=== PATIENT | female | born 1970 | race Hispanic/Latino ===

== ENCOUNTER → 2020-01-22 | Day surgery (SDC) | payer OTHER ==
[~2020-01-22] MED LIST: FAMOTIDINE20 MG PO; FENTANYL CITRATE/PF 100MCG/2 ML INJ ONE; FLUOXETINE HCL20 MG PO; IBUPROFEN400 MG PO; MIDAZOLAM HCL 2 MG/2 ML VIAL ONE; NASAL SPRAY30 M1; PROPOFOL IV EMULSION 10 MG/ML 20 ML VIAL ONE
--- OUTSIDE RECORDS SUMMARY | 2020-01-22 09:38 | XMS REPORT | Continuity of Care Document ---
Author Author [employer] [facility] [employer] Address Unknown Phone Unavailable Care Team Providers Care Ship Mate Name Role Phone [facility] [employer] [facility] Unavailable Un available Problems Problem Status Onset Date Classification Date Reported Comments Source Discharge Diagnosis: Paresthesia 09/17/2016 09/20/2016 [facility] Discharge Diagnosis: Cold sore 09/17/2016 09/20/2016 [facility] FACE NUMBNESS Active 09/17/2016 [facility] Medications Medication Details Route Status Patient Instructions Ordering Provider Order Date Source acyclovir 400 mg oral tablet 4 00 mg = 1 tab, PO, 5X Day, X 5 day, # 25 tab, 0 Refill(s) Active 09/17/2016 [facility] gabapentin 300 MG Oral Capsule 300 mg = 1 cap, PO, BID, # 30 cap, 0 Refill(s) Active 09/17/2016 [facility] Allergies, Adverse Reactions, Alerts No Known Medication Allergies Immunizations No Data Provided for This Section Results Order Name Results Value Reference Range Date Interpretation Comments Source URINE AND STOOL UA Nitrite Negative (09/17/16 4:04 PM) Negative 09/17/2016 [facility] URINE AND STOOL UA Leuk Est Negative (09/17/16 4:04 PM) Negative 09/17/2016 [facility] URINE AND STOOL UA WBC 1 0 - 5 09/17/2016 [facility] URINE AND STOOL UA Sq Epi Occasional /LPF Few /LPF 09/17/2016 [facility] URINE AND STOOL UA Ketones Negative 09/17/2016 [facility] URINE AND STOOL UA RBC 1 0 - 2 09/17/2016 [facility] URINE AND STOOL UA Urobilinogen <=1.0 mg/dL 0.1 - 1.0 09/17/2016 [facility] URINE AND STOOL UA Color Straw 09/17/2016 [facility] URINE AND STOOL UA Bili Negative *NA* (09/17/16 4:04 PM) Negative 09/17/2016 [facility] URINE AND STOOL UA Glucose Negative mg/dL Negative mg/dL 09/17/2016 [facility] URINE AND STOOL UA Protein Negative mg/dL Negative mg/dL 09/17/2016 [facility] URINE AND STOOL UA Blood Small *ABN* (09/17/16 4:04 PM) Negative 09/17/2016 [facility] URINE AND STOOL UA pH 6.0 5.0 - 8.0 09/17/2016 [facility] URINE AND STOOL UA Spec Grav 1.006 <=1.030 09/17/2016 [facility] URINE AND STOOL UA Turbidity Clear (09/17/16 4:04 PM) Clear 09/17/2016 [facility] URINE CHEM U Preg Negat vitaliy (09/17/16 4:04 PM) Negative 09/17/2016 [facility] Pathology Reports No Data Provided for This Section Diagnostic Reports No Data Provided for This Section Consultation Notes No Data Provided for This Section Discharge Summaries No Data Provided for This Section History and Physicals No Data Provided for This Section Vital Signs Vital Sign Value Date Comments Source Heart Rate 64 09/17/2016 [facility] Respitory Rate 18 09/17/2016 [facility] Systolic (mm Hg) 115 09/17/2016 [facility] Diastolic (mm Hg) 72 09/17/2016 [facility] Height 154.94 cm 09/17/2016 [facility] Weight 59.091 09/17/2016 [facility] BMI Calculated 24.61 09/17/2016 [facility] Temperature Oral (F) 97.5 F 09/17/2016 [facility] Respitory Rate 16 09/17/2016 [facility] Systolic (mm Hg) 132 09/17/2016 [facility] Diastolic (mm Hg) 88 09/17/2016 [facility] Heart Rate 83 09/17/2016 [facility] Encounters Location Location Details Encounter Type Encounter Number Reason For Visit Attending Provider ADM Date DC Date Status Source [facility] [id number] Flor Flores 09/17/2016 09/17/2016 [facility] Procedures No Data Provided for This Section Assessment and Plan No Data Provided for This Section Plan of Care No Data Provided for This Section Social History Social History Date Source Social History TypeResponse Smoking Status Never smoker; Exposure to Tobacco Smoke None; Cigarette Smoking Last 365 Days No; Reg Smoking Cessation Counseling No 09/17/2016 [facility] Family History No Data Provided for This Section Advance Directives No Data Provided for This Section Functional Status No Data Provided for This Section
--- OUTSIDE RECORDS SUMMARY | 2020-01-22 09:38 | XMS REPORT | Summary of Care ---
Author Author [facility] Organization [facility] Address Unknown Phone Unavailable Encounter TATO De La Rosa(BARNEY) [id number] Date(s): 09/17/16 - 09/17/16 [id number] [place] [address]- Discharge Diagnosis: Paresthesia Discharge Diagnosis: Cold sore Discharge Disposition: Home or Self Care Attending Physician: Flor Flores DO Vital Signs Most recent to 1 2 oldest [Reference Range]: Height 154.94 cm (09/17/16 2:30 PM) Temperature Oral 97.5 DegF [96.4-99.1 DegF] (09/17/16 2:30 PM) Blood Pressure 115/72 mmHg 132/88 mmHg [90-140/60-90 mmHg] (09/17/16 5:25 PM) (09/17/16 2:30 PM) Respiratory Rate 18 BRMIN 16 BRMIN [14-20 BRMIN] (09/17/16 5:25 PM) (09/17/16 2:30 PM) Peripheral Pulse 64 bpm 83 bpm Rate [60-100 bpm] (09/17/16 5:25 PM) (09/17/16 2:30 PM) Weight 59.091 kg (09/17/16 2:30 PM) Body Mass Index 24.61 m2 (09/17/16 2:30 PM) Problem List No data available for this section Allergies, Adverse Reactions, Alerts Substance Reaction Severity Status NKDA Active Medications acyclovir 400 mg oral tablet 400 mg = 1 tab, PO, 5X Day, X 5 day, # 25 tab, 0 Refill(s) Start Date: 09/17/16 Stop Date: 09/22/16 Status: Ordered gabapentin 300 mg oral capsule 300 mg = 1 cap, PO, BID, # 30 cap, 0 Refill(s) Start Date: 09/17/16 Status: Ordered Results URINE CHEM Most recent to 1 oldest [Reference Range]: U Preg [Negative] Negative (09/17/16 4:04 PM) URINE AND STOOL Most recent to 1 oldest [Reference Range]: UA Turbidity [Clear] Clear (09/17/16 4:04 PM) UA Color Straw *NA* (09/17/16 4:04 PM) UA pH [5.0-8.0] 6.0 (09/17/16 4:04 PM) UA Spec Grav 1.006 [<=1.030] (09/17/16 4:04 PM) UA Glucose [Negative Negative mg/dL mg/dL] *NA* (09/17/16 4:04 PM) UA Blood [Negative] Small *ABN* (09/17/16 4:04 PM) UA Ketones Negative *NA* (09/17/16 4:04 PM) UA Protein [Negative Negative mg/dL mg/dL] (09/17/16 4:04 PM) UA Urobilinogen <=1.0 mg/dL [0.1-1.0 mg/dL] *NA* (09/17/16 4:04 PM) UA Bili [Negative] Negative *NA* (09/17/16 4:04 PM) UA Leuk Est Negative [Negative] (09/17/16 4:04 PM) UA Nitrite Negative [Negative] (09/17/16 4:04 PM) UA WBC [0-5 /HPF] 1 /HPF (09/17/16 4:04 PM) UA RBC [0-2 /HPF] 1 /HPF (09/17/16 4:04 PM) UA Sq Epi [Few /LPF] Occasional /LPF *NA* (09/17/16 4:04 PM) Immunizations No data available for this section Procedures No data available for this section Social History Social History Type Response Smoking Status Never smoker; Exposure to T obacco Smoke None; Cigarette Smoking Last 365 Days No; Reg Smoking Cessation Counseli ng No Assessment and Plan No data available for this section
[2020-01-22 11:58] VITALS: BP 130/70
== END | disposition home or self-care (01) ==
LOC: OR 09:35
PROVIDERS: ATTEND Internal Medicine
DX: K59.00 Constipation, unspecified (principal); K62.1 Rectal polyp; D13.5 Benign neoplasm of extrahepatic bile ducts; K29.00 Acute gastritis without bleeding; K29.50 Unspecified chronic gastritis without bleeding; K29.80 Duodenitis without bleeding; K21.9 Gastro-esophageal reflux disease without esophagitis; K20.9 Esophagitis, unspecified; R63.4 Abnormal weight loss; R73.03 Prediabetes; F32.9 Major depressive disorder, single episode, unspecified; Z88.6 Allergy status to analgesic agent; B96.81 Helicobacter pylori [H. pylori] as the cause of diseases classified elsewhere; Z01.810 Encounter for preprocedural cardiovascular examination; Z01.812 Encounter for preprocedural laboratory examination; Z11.59 Encounter for screening for other viral diseases
CPT/HCPCS: 43239; 45380; 87635; 93005; J2250; J2704; J3010; 45384